=== PATIENT | male | born 1955 | race Caucasian/White ===

== ENCOUNTER 2020-01-30 05:53 | Day surgery (SDC) | payer OTHER ==
[2020-01-24 13:09] LABS: Basophils # (auto) 0.1 10 ^3/uL (0-0.2); Hemoglobin 16.3 g/dL (13.5-17.5); Monocytes # (auto) 0.6 10 ^3/uL (0-1.3); Neutrophils # (auto) 3.1 10 ^3/uL (1.6-8.6); Nucleated Red Blood Cells % 0.1 %; Platelet Count (auto) 246 10^3/uL (140-450)
[2020-01-24 13:11] LABS: Basophils % (auto) 1.2 % (0.0-2.0); Eosinophils # (auto) 0.2 10 ^3/uL (0-0.8); Eosinophils % (auto) 4.1 % (0.0-7.0); Hematocrit 48.7 % (41.0-53.0); Mean Corpuscular Hemoglobin 35.1 pg (28.0-32.0); Mean Corpuscular Hgb Conc. 33.4 g/dL (32.0-36.0); Monocytes % (auto) 10.2 % (0.0-12.0); Neutrophils % (auto) 51.5 % (37.0-80.0); Red Blood Cells 4.64 10^6/uL (4.5-5.90); Red Cell Distribution Width 13.1 % (11.8-14.3)
[2020-01-24 13:25] LABS: INR 1.06 (0.9-1.15); Partial Thromboplastin Time 27.9 sec (23.64-32.05)
[2020-01-24 13:27] LABS: Albumin 3.6 g/dL (3.4-5.0); Calcium 8.8 mg/dL (8.5-10.1); Potassium 4.5 mmol/L (3.5-5.1)
[2020-01-24 13:31] LABS: BUN/Creatinine Ratio 11.5; Bilirubin, Total 0.7 mg/dL (0.2-1.0); Total Protein 7.4 g/dL (6.4-8.2)
[~2020-01-30] VITALS: Ht 182.9 cm; Wt 72.6 kg
[~2020-01-30 05:53] MED LIST: IBUP800T24 PO
[2020-01-30] MEDS ORDERED: ceFAZolin 1GM/50ML 50 ML IV ONE (07:25)
[2020-01-30] MEDS ORDERED: ONDANSETRON HCL 4 MG/2 ML VIAL ONE (08:09)
[2020-01-30] MEDS ORDERED: MIDAZOLAM HCL 1MG/1ML-2 ML VIAL ONE (08:09)
[2020-01-30] MEDS ORDERED: PROPOFOL 10 MG/ML 20 ML IV ONE (08:09)
[2020-01-30] MEDS ORDERED: SODIUM CHLORIDE LOCK 10 ML ONE (08:09)
[2020-01-30] MEDS ORDERED: fentaNYL CITRATE 100 MCG/2 ML VL ONE (08:09)
[2020-01-30] MEDS ORDERED: ROPIVACAINE 0.5% (5MG/ML) 20ML AMPULE IJ ONE (08:36)
[2020-01-30] MEDS ORDERED: methylPREDNISolone ACETATE 80 MG/ML VL ONE (09:05)
[2020-01-30 09:54] VITALS: BP 109/67
== END 2020-01-30 10:02 | disposition home or self-care (01) ==
LOC: SUR 05:53
PROVIDERS: ATTEND Podiatrist Foot & Ankle Surgery
DX: G57.51 Tarsal tunnel syndrome, right lower limb (principal); I10 Essential (primary) hypertension; G62.9 Polyneuropathy, unspecified; Z98.890 Other specified postprocedural states
CPT/HCPCS: 28035; 36415; 80053; 85025; 85610; 85730; J0690; J1040; J2250; J2405; J2704; J2795; J3010; J7030; L3260

== ENCOUNTER 2020-07-10 12:17 | Emergency (ER) | payer OTHER ==
[~2020-07-10] VITALS: Ht 185.4 cm; Wt 69.4 kg
[2020-07-10] MEDS ORDERED: ACETAMINOPHEN 650 mg PER 20.3 mL UD PO ONE (12:30)
[2020-07-10] MEDS ORDERED: ACETAMINOPHEN 325 MG TAB PO ONE ×2 (12:33→12:45)
[2020-07-10 16:40] VITALS: BP 112/72
== END 2020-07-10 17:20 | disposition home or self-care (01) ==
LOC: ER 12:17
DX: S52.501A Unspecified fracture of the lower end of right radius, initial encounter for closed fracture (principal); M19.041 Primary osteoarthritis, right hand; F17.210 Nicotine dependence, cigarettes, uncomplicated; W01.0XXA Fall on same level from slipping, tripping and stumbling without subsequent striking against object, initial encounter; Y93.89 Activity, other specified; Y92.89 Other specified places as the place of occurrence of the external cause; Y99.8 Other external cause status
CPT/HCPCS: 29125; 73110